=== PATIENT | male | born 1940 | race Caucasian/White ===

== ENCOUNTER 2020-12-25 15:30 | Outpatient (CLI) | payer MEDICARE, OTHER, SELFPAY ==
--- NOTE | 2020-12-25 | XR_ITS ---
WS: [id number] PROCEDURE: XR chest 2V* [id number] CLINICAL INFORMATION: CP, EXERTIONAL SOB COMPARISON: None. FINDINGS: Heart: Normal cardiac silhouette. Lungs: Moderate chronic emphysematous changes. Subsegmental atelectasis right lower lobe. No acute-ap pearing pulmonary infiltrates. No focal pneumonia. Bones: Mild thoracic kyphosis. XR/XR chest 2V* [id number] IMPRESSION: 1. Subsegmental atelectasis right lower lobe. 2. No acute-appearing pulmonary infiltrates. 3. Moderate chronic emphysematous changes.
--- NOTE | 2020-12-25 | XR_ITS ---
WS: [id number] CERVICAL SPINE TECHNIQUE: 3 views of the cervical spine CLINICAL INFORMATION: NECK PAIN COMPARISON: None. FINDINGS: Straightening of the normal cervical lordosis. Moderate spondylitic changes. Normal prevertebral soft tissues. Disc space narrowing throughout the cervical spine worse at C3-C4 C4-C5 C5-C6 and C6-C7. No rmal C1-2 articulation. Normal dens. XR/XR cervical spine 3V* [id number] IMPRESSION: Straightening of the normal cervical lordosis with moderate spondylitic changes .
== END 2020-12-25 15:31 | disposition home or self-care (01) ==
PROVIDERS: Visit Provider Nurse Practitioner Family
DX: M54.2 Cervicalgia (principal); R07.9 Chest pain, unspecified; R06.02 Shortness of breath; J98.11 Atelectasis
CPT/HCPCS: 71046; 72040

== ENCOUNTER → 2023-05-11 13:50 | Outpatient (BNVA) | payer MEDICARE, OTHER, SELFPAY | PROVIDERS: Visit Provider Nurse Practitioner Family | DX: M54.50 Low back pain, unspecified (principal) | CPT/HCPCS: 72100 ==

== ENCOUNTER 2024-09-08 14:48 | Outpatient (CLI) | payer MEDICARE, OTHER, SELFPAY ==
--- NOTE | 2024-09-08 14:56 | XR_ITS ---
WS: [id number] XR knee RT 3V* [id number] REASON FOR EXAM: M25.561 FINDINGS: No acute fracture. Probable small joint effusion. Mild narrowing of the medial knee joint space with mild subchondral sclerosis and minimal marginal os teophytosis. The lateral knee joint space is intact and well preserved. Patellofemoral joint space is intact with mild to moderate subchondral sclerosis and mild osteophytos is of the patella. Moderate degenerative change in the fibular tibial articulation. Small linear metallic foreign body i n the soft tissue anterior to the proximal tibia. XR/XR knee RT 3V* [id number] IMPRESSION: Probable small joint effusion. No other acute abnormality. 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
== END 2024-09-08 14:49 | disposition home or self-care (01) ==
PROVIDERS: PCP Nurse Practitioner Family; Visit Provider Nurse Practitioner Family
DX: M22.2X1 Patellofemoral disorders, right knee (principal)
CPT/HCPCS: 73562